=== PATIENT | male | born 1960 | race Caucasian/White ===

== ENCOUNTER → 2017-10-09 | Outpatient (CLI) | payer BC ==
[~2017-10-09] MED LIST: ADVIL200 MG PO; ALTACE 5MG5 MG PO; ASPIRIN 81M81 MG/TA2 PO; NITROSTAT0.4 MG/TAB SL; PEPCID 20MG TAB20 MG PO; XANAX .25M0.25 MG/TA PO; ZOCOR 40MG40 MG PO; ZOFRAN ODT4 MG PO
== END ==
LOC: COL.RAD 12:00
DX: M47.817 Spondylosis without myelopathy or radiculopathy, lumbosacral region (principal)

== ENCOUNTER 2019-02-07 08:00 | Outpatient (RCR) | payer BC | END 2019-02-28 11:18 | disposition home or self-care (01) | LOC: MKS.ESL.PT 08:00 | DX: H81.11 Benign paroxysmal vertigo, right ear (principal) ==